=== PATIENT | male | born 1955 | race Caucasian/White ===

== ENCOUNTER 2016-08-29 06:45 | Day surgery (SDC) | payer MEDICARE ==
--- NOTE | ~2016-08-29 | EGD ---
EGD REPORT [facility] [address] [place] [address] NAME: SUMEET GEE : 55 STATUS : REG [facility] [place] PAT#: [id number] AGE: 61 ADM/REG DATE : 08/29/16 MR#: [id number] REPORT SERV DATE: 08/29/16 DICTATED BY: ADE ROGERS DATE: 08/29/16 REPORT STATUS : Draft TRANSCRIBED BY: [employer] DATE: 08/29/16 [facility] Patient Name: Sumeet Gee Date of : 1955 Attending MD: ADE ROGERS MD Procedure Date No Time: 08/29/2016 Procedure: Colonoscopy Indications: Screening for colorectal malignant neoplasm Referring MD: DAT NOWAK Medicines: as per anesthesia Complications: No immediate complications. Procedure: Pre-Anesthesia Assessment: - ASA Grade Assessment: III - A patient with severe systemic disease. After I obtained informed consent, the scope was passed under direct vision. Throughout the procedure, the patient's blood pressure, pulse, and oxygen saturations were monitored continuously. The PCF [id number] was introduced through the anus and advanced to the cecum, identified by appendiceal orifice and ileocecal valve. The colonoscopy was performed without difficulty. The patient tolerated the procedure. The quality of the bowel preparation was fair. Findings: The perianal and digital rectal examinations were normal. A sessile polyp was found in the transverse colon. The polyp was 4 mm in size. The polyp was removed with a cold biopsy forceps. Resection and retrieval were complete. Impression: - One 4 mm polyp in the transverse colon. Resected and retrieved. Recommendation: - Await pathology results. - Repeat colonoscopy for surveillance based on pathology results. Procedure Code(s): --- Professional --- 60675, Colonoscopy, flexible, proximal to splenic flexure; with biopsy, single or multiple Diagnosis Code(s): --- Professional --- D12.3, Benign neoplasm of transverse colon Z12.11, Encounter for screening for malignant neoplasm of colon EGD REPORT [facility] [address] [id number] NAME: SUMEET GEE : 55 STATUS : REG [facility]#: [id number] AGE: 61 ADM/REG DATE : 08/29/16 MR#: [id number] REPORT SERV DATE: 08/29/16 DICTATED BY: ADE ROGRES. DATE: 08/29/16 REPORT STATUS : Draft TRANSCRIBED BY: [employer] DATE: 08/29/16 CPT copyright 2013 [employer]. All rights reserved. The codes documented in this report are preliminary and upon health information coder review may be revised to meet current compliance requirements. ADE ROGERS MD 08/29/2016 9:55 AM This report has been signed electronically. Number of Addenda: 0 Note Initiated On: 08/29/2016 9:24 AM Scope Withdrawal Time 0 hours 8 minutes 29 seconds [id number] [id number]
[~2016-08-29 06:45] MED LIST: ALEVE220 MG PO; BETIMOL0.5 % OP; CENTRUM PO; CENTRUM TAB1 TAB PO; CO Q-10100 MG PO; COZAAR100 MG PO; GLUCPH PO; LIPITOR40 PO; METFORMIN PO; VISINE0.05 % OP; VITAMIN D31000 UNIT PO; ZOCOR40 PO; losartan PO
== END 2016-08-29 23:59 | disposition home or self-care (01) ==
LOC: DMU 06:45
PROVIDERS: Internal Medicine Gastroenterology
PROC: 0DBL8ZZ Excision of Transverse Colon, Via Natural or Artificial Opening Endoscopic (ICD-10-PCS; principal; 2016-08-29 08:30)
DX: Z12.11 Encounter for screening for malignant neoplasm of colon (principal); D12.3 Benign neoplasm of transverse colon; I10 Essential (primary) hypertension; E11.9 Type 2 diabetes mellitus without complications; Z79.899 Other long term (current) drug therapy; Z79.84 Long term (current) use of oral hypoglycemic drugs; Z79.1 Long term (current) use of non-steroidal anti-inflammatories (NSAID)
CPT/HCPCS: 82962; 88305